=== PATIENT | male | born 1960 | race Caucasian/White ===

== ENCOUNTER → 2016-05-22 | Outpatient (CLI) | payer OTHER ==
[~2016-05-22] MED LIST: ALBU0.63 NEB; ASPI-482 PO; DIGO125T PO; DOCU100C5 PO; ENOX40DI SQ; FLUO20CA8 PO; GABA600T2 PO; LISI2.5T PO; MECL25TA3 PO; METO25TA9 PO; REGADENOSON 0.4 MG/5 ML DISP.SYRIN. IV ONE; TRAZ100T12 PO
[2016-05-22 10:35] VITALS: BP 121/88
--- NOTE | 2016-05-22 14:08 | RAD ---
APPROVED REPORT Test Type: Pharmacological Stress Nurse/Tech: Minerva Beltran R.N. Test Indications: chest pain- pt from the SD Cardiac History: chf, copd, pacemaker, smoker Medications: see attached copy Medical History: se above Resting ECG: ventricular paced Resting Heart Rate: 71 bpm Resting Blood Pressure: 124/85mmHg Pretest Chest Pain: No chest pain Nurse/Tech Notes lungs cta, heart tones regular, good radial pulse Consent: The procedure was explained to the patient in lay terms. Informed consent was witnessed. Rolf eout was entered into [employer]. History and Stress Test performed by Minerva Beltran R.N. Pharm. Details Pharmacologic stress testing was performed using 0.4mg per 5ml of regadenoson given intravenously ove r 7-10 seconds. Stress Symptoms chest pain at beginning of recovery 5/10, resolved 0/10 with recovery POST EXERCISE Reason for Termination: Infusion complete Target HR: No Max HR: 83 bpm Max Blood Pressure: 117/80mmHg Chest Pain: Yes. see above Arrhythmia: No. ST Change: No. INTERPRETATION Stress EKG Conclusion: Baseline EKG showed ventricular paced rhythm. Non-diagnostic changes at peak stress. No arrhythmias. Imaging Protocol IMAGE PROTOCOL: Rest Tc-99m/stress Tc-99m 1 day Rest: Stress: Viability: Radiopharm.Tc99m [id number] Sestamibi Dose11.8mCi 34mCi Duration 15min. 10min. Img Date 05/22/2016 05/22/2016 Inj-Img Lprb34mrd. 60min. Rest Admin Site:[facility] Cashier:GIANCARLO Nails Stress Admin Site: [facility] Cashier: LILLIAN Louise, ARRT (R)(N) STRESS DATA End Diast. Vol.264.0mlAv. Heart Rate80.0bpm End Syst. Vol.162.0mlCO Index BSA0.0L/min Myocardial Lwah970.0gEject. Qffyewpx30.0% Stress Rates Pk. Fill Rate1.79EDV/secLVtime Pk. Fill 64.57msec Pk. Empty Rate1.81ESV/secLVtime Pk. Pcbzu092.35msec 03/05 Pk. Fill1.30EDV/sec Stress Scores Regional WT1.00Summed WT36.00 Regional WM0.00Summed WM33.00 LV Perfusion Scintigraphic images showed small to moderate fixed defect involving the apical wall consistent with previous myocardial infarction without any reversibility. Wall Motion Moderate left ventricular systolic dysfunction with ejection fraction calculated at 39%. LV Perf. Quant 17 Seg. SSS13.00 17 Seg. SRS16.00 17 Seg. SDS1.00 Stress Defect Extent (% LAD)32.50Rest Defect Extent (% LAD)31.90Rev. Defect Extent (% LAD)0.00 Stress Defect Extent (% LCX) 31.30Rest Defect Extent (% LCX)27.50Rev. Defect Extent (% LCX)0.00 Stress Defect Extent (% RCA)23.30Rest Defect Extent (% RCA)30.00Rev. Defect Extent (% RCA)0.00 Stress Defect Extent (% JUAN)30.70Rest Defect Extent (% JUAN)35.20Rev. Defect Extent (% JAUN)0.00 Conclusion 1. Regadenoson cardioisotope stress test showed [id number] apical wall infarct without any sig nificant ischemia. 2. Moderate left ventricular systolic dysfunction with ejection fraction calculated at 39%. 3. Low to intermediate risk for cardiac events.
== END | disposition home or self-care (01) ==
LOC: NM 10:28
PROVIDERS: ATTEND Internal Medicine Cardiovascular Disease
DX: R07.9 Chest pain, unspecified (principal)
CPT/HCPCS: 78452; 93017; 96374; 96375; 96376; A9500; J2785